=== PATIENT | female | born 1985 | race Two or more races ===

== ENCOUNTER 2017-11-12 23:25 | Inpatient (IN) | payer MEDICAID ==
[~2017-11-12] VITALS: Ht 5367.7 cm; Wt 70.3 kg
[~2017-11-12 23:25] MED LIST: NITR-60 PO; NO HOME MEDS; PHEN-873 PO; ZOF4T PO
[2017-11-13] VITALS (15 sets, daily range): BP systolic 96–127; BP diastolic 59–85
[2017-11-13] MEDS ORDERED: ondansetron/PF 4mg/2ml inj IV ONE ×2 (00:30→04:10)
[2017-11-13] MEDS ORDERED: LORazepam 2 mg/ml vial IV ONE (00:30)
[2017-11-13] MEDS ORDERED: morphine sulfate 8 MG/ML SYRINGE IV ONE (00:30)
[2017-11-13 02:26] LABS: ALANINE AMINOTRANSFERASE 25 U/L (12-78); ALBUMIN 3.1 G/DL (3.4-5.0); ALBUMIN/GLOBULIN RATIO 0.8 (1.1-1.5); ALKALINE PHOSPHATASE 60 IU/L (46-116); ANION GAP 7 (8-16); ASPARTATE AMINO TRANSFERASE 20 U/L (10-37); BILIRUBIN,TOTAL 0.4 MG/DL (0.1-1.0); BLOOD UREA NITROGEN 8 MG/DL (7-18); BUN/CREATININE RATIO 10.4 (6.6-38.0); CALCIUM 8.4 MG/DL (8.5-10.1); CHLORIDE 105 MMOL/L (99-107); CREATININE 0.77 MG/DL (0.40-0.90); GLUCOSE 83 MG/DL (70-104); POTASSIUM 3.5 MMOL/L (3.5-5.1); SODIUM 139 MMOL/L (135-145); TOTAL CARBON DIOXIDE 26.7 MMOL/L (24-32); TOTAL PROTEIN 6.8 G/DL (6.4-8.2); eGFR 88 ML/MIN
[2017-11-13 02:29] LABS: BASOPHILS # (AUTO) 0.1 X10'3 (0-0.2); BASOPHILS % (AUTO) 0.6 % (0-1); EOSINOPHILS # (AUTO) 0.2 X10'3 (0-0.9); EOSINOPHILS % (AUTO) 1.4 % (0-6); HEMATOCRIT 36.6 % (35.0-45.0); HEMOGLOBIN 12.8 g/dl (12.0-16.0); LYMPHOCYTES # (AUTO) 2.2 X10'3 (1.1-4.8); LYMPHOCYTES % (AUTO) 19.9 % (21-51); MEAN CORPUSCULAR HEMOGLOBIN 29.9 PG (27.0-31.0); MEAN CORPUSCULAR VOLUME 85.5 FL (78-98); MEAN PLATELET VOLUME 8.6 FL (7.4-10.4); MONOCYTES # (AUTO) 0.5 X10'3 (0-0.9); MONOCYTES % (AUTO) 4.5 % (2-12); NEUTROPHILS # (AUTO) 8.1 X10'3 (1.8-7.7); NEUTROPHILS % (AUTO) 73.6 % (42-75); PLATELET COUNT 279 X10'3 (140-440); RED BLOOD COUNT 4.28 X10'6 (4.20-5.60); RED CELL DISTRIBUTION WIDTH 11.8 % (11.5-14.5); WHITE BLOOD COUNT 11.1 X10'3 (4.5-11.0)
[2017-11-13] MEDS ORDERED: diphenhydrAMINE 50 mg/ml inj IV ONE (08:25)
[2017-11-13] MEDS ORDERED: metoclopramide 5 mg/ml inj IV ONE (08:25)
[2017-11-13] MEDS ORDERED: normal saline 1000ML IV soln IVB ONE (08:35)
[2017-11-13] MEDS ORDERED: iohexol 300mg/ml 100ml inj. ONE (08:49)
[2017-11-13] MEDS ORDERED: morphine sulfate 8 MG/ML SYRINGE ONE (08:53)
[2017-11-13 09:09] LABS: URINE HCG NEGATIVE (NEG)
[2017-11-13 09:10] LABS: CLARITY,URINE Cloudy (Clear); COLOR,URINE Yellow (Yellow); GLUCOSE, URINE Negative (Neg); KETONES,URINE Negative (Neg); LEUKOCYTE ESTERASE ,URINE Large (Neg); NITRITES, URINE Negative (Neg); OCCULT BLOOD,URINE Negative (Neg); PROTEIN,URINE Negative (Neg)
[2017-11-13 09:15] LABS: UA COLLECTION TYPE CLN CATCH MIDSTREAM
[2017-11-13 09:46] LABS: MUCUS STRANDS MODERATE /LPF (Neg)
[2017-11-13 09:56] LABS: BACTERIA,URINE 4+ /HPF (Neg)
[2017-11-13 09:57] LABS: SQUAMOUS EPITHELIAL CELL,UR MANY /LPF (FEW)
[2017-11-13] MEDS ORDERED: potassium Cl 40MEQ/NS 500ml 500 ML IV PRN ×2 (10:25)
[2017-11-13] MEDS ORDERED: HYDROcodone/acetaminophen 5mg/325mg tablet PO PRN (10:25)
[2017-11-13] MEDS ORDERED: magnesium Cl slow-release 64mg tablet PO PRN (10:25)
[2017-11-13] MEDS ORDERED: potassium Cl 20 mEq SR tablet PO PRN ×2 (10:25)
[2017-11-13] MEDS ORDERED: mag hydrox/Alum hydrox/simeth 30ml oral suspension PO PRN (10:25)
[2017-11-13] MEDS ORDERED: morphine sulfate 8 MG/ML SYRINGE IV PRN ×3 (10:25→18:25)
[2017-11-13] MEDS ORDERED: magnesium 4gm in 100ml NS 100 ML IV PRN (10:25)
[2017-11-13] MEDS ORDERED: magnesium 2GM in 50ml NS 50 ML IV PRN (10:25)
[2017-11-13] MEDS ORDERED: bisacodyl 10mg suppository rectal RC PRN (10:25)
[2017-11-13] MEDS ORDERED: acetaminophen 325mg tablet PO PRN (10:25)
[2017-11-13] MEDS ORDERED: magnesium hydroxide 30ml (MOM) UD suspension PO PRN (10:25)
[2017-11-13] MEDS: levoFLOXACIN-Levaquin 500mg/D5 100 ML IV SCH (11:50)
[2017-11-13] MEDS: pantoprazole 40 MG vial IV SCH (11:50)
[2017-11-13] MEDS: potassium Cl 20mEq in NS 1,000 ML IV SCH (13:56)
[2017-11-13] MEDS: ondansetron/PF 4mg/2ml inj IV PRN ×2 (14:46→21:01)
[2017-11-13] MEDS: morphine sulfate 8 MG/ML SYRINGE IV PRN ×2 (14:46→21:00)
[2017-11-13] MEDS ORDERED: BUPIVAcaine/PF 2.5 mg/ml (0.25%) 30ml vial ONE (17:17)
[2017-11-13] MEDS: lactobacillus rhamnosus 10,000 MMU CELLS/CAPSULE PO SCH (17:43)
[2017-11-13] MEDS ORDERED: fentaNYL/PF 50MCG/1 ML 2ML syringe ONE (17:56)
[2017-11-13] MEDS ORDERED: midazolam 2 mg/2 ml injection ONE (17:56)
[2017-11-13] MEDS ORDERED: propofol inj 20 ML IV ONE (17:57)
[2017-11-13] MEDS ORDERED: LIDOcaine 2% (20mg/ml) 5ml vial ONE (17:57)
[2017-11-13] MEDS: ceFAZolin 1000mg inj ONE ×2 (18:01→19:59)
[2017-11-13] MEDS ORDERED: ceFOXitin 1000 MG inj ONE (18:20)
[2017-11-13] MEDS ORDERED: ketorolac trometh. 30mg/ml inj. ONE (18:20)
[2017-11-13] MEDS ORDERED: proCHLORperazine 10 MG/2 ml inj IV PRN (18:25)
[2017-11-13] MEDS ORDERED: meperidine/PF 25mg/ml syringe IV PRN ×2 (18:25)
[2017-11-13] MEDS ORDERED: ondansetron/PF 4mg/2ml inj IV PRN (18:25)
[2017-11-13] MEDS ORDERED: ringers solution, lacted 1,000 ML IV SCH (18:25)
[2017-11-13] MEDS ORDERED: bacitracin 15gm ointment TP ONE (18:42)
[2017-11-13] MEDS ORDERED: neostigmine methylsulfate 1 MG/ML 10ml vial ONE (18:55)
[2017-11-13] MEDS: meperidine/PF 25mg/ml syringe IV PRN ×2 (19:20→19:40)
[2017-11-13] MEDS: docusate sod 100mg capsule PO SCH (20:00)
[2017-11-13] MEDS: HYDROcodone/acetaminophen 10/325mg tab PO PRN (23:01)
[2017-11-14] VITALS: BP 103/62
[2017-11-14] MEDS: potassium Cl 20mEq in NS 1,000 ML IV SCH ×2 (01:39→06:22)
[2017-11-14 04:00] VITALS: BP 100/62
[2017-11-14 05:58] LABS: BASOPHILS # (AUTO) 0.1 X10'3 (0-0.2); BASOPHILS % (AUTO) 0.4 % (0-1); EOSINOPHILS % (AUTO) 0 % (0-6); HEMATOCRIT 37.5 % (35.0-45.0); HEMOGLOBIN 12.8 g/dl (12.0-16.0); LYMPHOCYTES # (AUTO) 0.7 X10'3 (1.1-4.8); LYMPHOCYTES % (AUTO) 5.5 % (21-51); MEAN CORPUSCULAR HEMOGLOBIN 29.1 PG (27.0-31.0); MEAN CORPUSCULAR HGB CONC 34.2 % (33.0-36.5); MEAN CORPUSCULAR VOLUME 85.3 FL (78-98); MEAN PLATELET VOLUME 8.2 FL (7.4-10.4); MONOCYTES # (AUTO) 0.1 X10'3 (0-0.9); MONOCYTES % (AUTO) 0.8 % (2-12); NEUTROPHILS # (AUTO) 11.3 X10'3 (1.8-7.7); NEUTROPHILS % (AUTO) 93.3 % (42-75); PLATELET COUNT 312 X10'3 (140-440); RED CELL DISTRIBUTION WIDTH 12.2 % (11.5-14.5); WHITE BLOOD COUNT 12.1 X10'3 (4.5-11.0)
[2017-11-14 06:36] LABS: ANION GAP 7 (8-16); BLOOD UREA NITROGEN 6 MG/DL (7-18); BUN/CREATININE RATIO 7.6 (6.6-38.0); CALCIUM 8.7 MG/DL (8.5-10.1); CHLORIDE 104 MMOL/L (99-107); CREATININE 0.79 MG/DL (0.40-0.90); GLUCOSE 123 MG/DL (70-104); MAGNESIUM 1.9 MG/DL (1.5-2.4); POTASSIUM 4.5 MMOL/L (3.5-5.1); SODIUM 136 MMOL/L (135-145); TOTAL CARBON DIOXIDE 24.6 MMOL/L (24-32); eGFR 85 ML/MIN
[2017-11-14 07:40] VITALS: BP 104/66
[2017-11-14] MEDS: docusate sod 100mg capsule PO SCH (07:47)
[2017-11-14] MEDS: lactobacillus rhamnosus 10,000 MMU CELLS/CAPSULE PO SCH (07:47)
[2017-11-14] MEDS: levoFLOXACIN-Levaquin 500mg/D5 100 ML IV SCH (07:48)
[2017-11-14] MEDS: HYDROcodone/acetaminophen 10/325mg tab PO PRN (07:48)
[2017-11-14] MEDS: pantoprazole 40 MG vial IV SCH (07:48)
[2017-11-14] MEDS ORDERED: K and/or MAG REPLACEMENT MC SCH (08:00)
[2017-11-14 11:33] VITALS: BP 104/69
[2017-11-14] MEDS ORDERED: DOCU-28 PO (12:05)
[2017-11-14] MEDS ORDERED: HYDR-3972 PO (12:05)
== END 2017-11-14 12:50 | disposition home or self-care (01) | DRG 228 ==
LOC: ER 23:26 → ED HOLD 11-13 08:04 → SUR 3N 11-13 16:40
PROVIDERS: ADMIT Internal Medicine; ATTEND Internal Medicine
PROC: BW211ZZ Computerized Tomography (CT Scan) of Abdomen and Pelvis using Low Osmolar Contrast (ICD-10-PCS; 2017-11-13)
PROC: 0WUF4JZ Supplement Abdominal Wall with Synthetic Substitute, Percutaneous Endoscopic Approach (ICD-10-PCS; principal; 2017-11-13 17:42)
DX: K42.0 Umbilical hernia with obstruction, without gangrene (principal); N80.9 Endometriosis, unspecified; N83.201 Unspecified ovarian cyst, right side; Z90.49 Acquired absence of other specified parts of digestive tract
CPT/HCPCS: 36415; 74177; 80048; 80053; 81001; 81025; 83735; 85025; 87070; 96374; 96375; 96376; 99285; A6449; A7000; C1713; C1758; C1781; C9113; J0690; J0694; J1200; J1885; J1956; J2001; J2060; J2175; J2250; J2270; J2405; J2704; J2710; J2765; J3010; J3480; J3490; J7030; J7120; Q9967